=== PATIENT | female | born 1970 | race Caucasian/White ===

== ENCOUNTER 2020-01-28 07:36 | Outpatient (CLI) | payer OTHER, SELFPAY ==
--- NOTE | ~2020-01-28 | MM_ITS ---
EXAMINATION: MM screening bere BI w sweta HISTORY: Screening mammogram TECHNIQUE: Craniocaudal and mediolateral oblique 3-D tomosynthesis images were obtained and synthetic 2-D images were generated. CAD analysis was submitted and interpreted. COMPARISON: Comparison to multiple prior studies sequentially, with oldest reviewed study dated 01/27. BREAST PARENCHYMAL COMPOSITION: There are scattered areas of fibroglandular density. FINDINGS: There is a mass in the upper central aspect of the right breast which is partially obscured by fibroglandular tissue measuring approximately 1.3 cm maximum dimension. There is a focal asymmetr y superiorly in the right breast on the MLO view without definitive correlate on CC view. There are t issue markers in the right breast. There are small masses in the right breast which are obscured by f ibroglandular tissue. There are no suspicious calcifications or architectural distortion. IMPRESSION: 1. Developing bilateral breast masses. 2. Additional mammographic views and possible breast ultrasound are recommended. BI-RADS Category 0: Incomplete: Needs additional imaging evaluation. Reviewed, dictated and finalized at location A. IMPRESSION: 1. Developing bilateral breast masses. 2. Additional mammographic views and possible breast ultrasound are recommended . BI-RADS Category 0: Incomplete: Needs additional imaging evaluation.
== END 2020-01-28 07:37 | disposition home or self-care (01) ==
PROVIDERS: PCP Family Medicine Adolescent Medicine; Visit Provider Obstetrics & Gynecology
DX: Z12.31 Encounter for screening mammogram for malignant neoplasm of breast (principal); R92.8 Other abnormal and inconclusive findings on diagnostic imaging of breast
CPT/HCPCS: 77063; 77067

== ENCOUNTER 2020-01-30 11:01 | Outpatient (CLI) | payer OTHER, SELFPAY ==
--- NOTE | ~2020-01-30 | MMUS_ITS ---
EXAMINATION: MM diagnostic mammo unilat RT, US breast RT complete HISTORY: Developing right breast masses suggested on 01/28/2020 bilateral digital screening mammogram TECHNIQUE: Additional 3-D tomosynthesis images of the right breast were performed and synthetic 2-D i mages were generated. CAD analysis was submitted and interpreted. Rolled medial and rolled lateral cr aniocaudal views. High resolution complete right breast ultrasound was performed. COMPARISON: 01/28/2020, 01/03/2019, 03/22/2018, 02/03/2017 bilateral digital screening mammogram examinatio ns FINDINGS: MAMMOGRAPHIC FINDINGS: 2 biopsy markers are noted in the mid inner right breast. History of prior right benign breast biopsi es. Roughly 8 mm mass is suggested in upper inner right breast posteriorly; history of prior benign right breast biopsies. Circumscribed 4.5 mm mass is suggested in the lower mid right breast at approximately 6:00. ULTRASOUND: 12:00 4 cm from nipple: 3.3 x 3.8 x 6.8 millimeter sonolucency compatible with small cyst. 6:00 3 cm from nipple: 5.3 x 3.6 x 4.6 mm septated cyst. No suspicious mass or shadowing is detected. IMPRESSION: 1. Benign cysts 2. No mammographic evidence of malignancy 3. Routine mammographic screening is recommended BI-RADS Category 2: Benign finding(s). Reviewed, dictated and finalized at location A. IMPRESSION: 1. Benign cysts 2. No mammographic evidence of malignancy 3. Routine mammographic screening is recommended BI-RADS Category 2: Benign finding(s).
== END 2020-01-30 11:02 | disposition home or self-care (01) ==
PROVIDERS: PCP Family Medicine Adolescent Medicine; Visit Provider Student in an Organized Health Care Education/Training Program
DX: R92.2 Inconclusive mammogram (principal)
CPT/HCPCS: 76641; 77065

== ENCOUNTER 2020-10-27 11:46 | Outpatient (NON) | payer OTHER, SELFPAY ==
[2020-10-28 14:05] LABS: SARS-CoV-2 RNA PCR Negative
== END 2020-10-27 11:47 ==
LOC: ANHCOVIDDT 11:47
PROVIDERS: Family Provider Family Medicine Adolescent Medicine; PCP Family Medicine Adolescent Medicine; Visit Provider Family Medicine Adolescent Medicine
DX: R05 Cough (principal); R09.81 Nasal congestion; Z20.822 Contact with and (suspected) exposure to COVID-19
CPT/HCPCS: C9803; U0003; U0005

== ENCOUNTER 2021-02-04 08:09 | Outpatient (CLI) | payer OTHER, SELFPAY ==
--- NOTE | ~2021-02-04 | MM_ITS ---
EXAMINATION: MM screening bere BI w sweta HISTORY: Screening TECHNIQUE: Craniocaudal and mediolateral oblique 3-D tomosynthesis images were obtained and synthetic 2-D images were generated. CAD analysis was submitted and interpreted. COMPARISON: Comparison to multiple prior studies sequentially, with oldest reviewed study dated 05/2017. BREAST PARENCHYMAL COMPOSITION: Breast composed of scattered areas of fibroglandular density. FINDINGS: Focal asymmetry upper central aspect of the right breast is unchanged. There is no evidence of suspicious mass, calcification, or architectural distortion to suggest malignancy in either breas t. There has been no suspicious interval change. IMPRESSION: 1. No mammographic evidence of malignancy. 2. Recommend routine screening mammography in one year. BI-RADS Category 2: Benign finding(s). Reviewed, dictated and finalized at location A.
== END 2021-02-04 08:10 | disposition home or self-care (01) ==
LOC: ANHIMG 08:11
PROVIDERS: PCP Family Medicine Adolescent Medicine; Visit Provider Obstetrics & Gynecology
DX: Z12.31 Encounter for screening mammogram for malignant neoplasm of breast (principal)
CPT/HCPCS: 77063; 77067

== ENCOUNTER 2022-02-07 07:59 | Outpatient (CLI) | payer OTHER, SELFPAY ==
--- NOTE | ~2022-02-07 | MM_ITS ---
EXAMINATION: MM screening bere BI w sweta HISTORY: Screening TECHNIQUE: Craniocaudal and mediolateral oblique 3-D tomosynthesis images were obtained and synthetic 2-D images were generated. CAD analysis was submitted and interpreted. COMPARISON: Comparison to multiple prior studies sequentially, with oldest reviewed study dated 02/16. BREAST PARENCHYMAL COMPOSITION: Breast composed of scattered areas of fibroglandular density FINDINGS: The left breast is stable without evidence for malignancy. There is a mass in the upper out er quadrant of the right breast posteriorly. IMPRESSION: 1. Right breast mass, upper outer quadrant posteriorly. 2. Additional mammographic views and possible breast ultrasound are recommended. BI-RADS Category 0: Incomplete: Needs additional imaging evaluation. Reviewed, dictated and finalized at location A. IMPRESSION: 1. Right breast mass, upper outer quadrant posteriorly. 2. Additional mammographic views and possible breast ultrasound are recommended . BI-RADS Category 0: Incomplete: Needs additional imaging evaluation.
== END 2022-02-07 08:00 | disposition home or self-care (01) ==
LOC: ANHIMG 08:00
PROVIDERS: PCP Family Medicine Adolescent Medicine; Visit Provider Obstetrics & Gynecology
DX: Z12.31 Encounter for screening mammogram for malignant neoplasm of breast (principal); R92.8 Other abnormal and inconclusive findings on diagnostic imaging of breast
CPT/HCPCS: 77063; 77067

== ENCOUNTER 2022-02-11 11:39 | Outpatient (CLI) | payer OTHER, SELFPAY ==
--- NOTE | ~2022-02-11 | MMUS_ITS ---
EXAMINATION: MM diagnostic bere RT w sweta, US breast RT complete HISTORY: Follow-up right breast asymmetry TECHNIQUE: Additional 3-D tomosynthesis images of the right breast were performed and synthetic 2-D i mages were generated. CAD analysis was submitted and interpreted. High resolution right complete mar[address] ultrasound was performed. COMPARISON: Comparison to multiple prior studies sequentially, with oldest reviewed study dated 03/22. BREAST PARENCHYMAL COMPOSITION: The breasts are heterogenously dense, which may obscure small masses FINDINGS: MAMMOGRAPHIC FINDINGS: There is a focal asymmetry in the upper central aspect of the right breast posteriorly. No suspicious calcifications or architectural distortion. ULTRASOUND: Complete US of all 4 quadrants of the the right breast in the subareolar location: there is a normal- appearing lymph node in the right axilla. At 12:00, 4 cm from the nipple, there is a 4 mm cyst. At 6: 00, 3 cm from the nipple, there is an oval hypoechoic mass measuring 4 mm with low-level internal ech oes, posterior acoustic enhancement, likely a complicated cyst. There is prominent duct in the subare olar location. . IMPRESSION: 1. Probable benign right breast masses. 2. Recommend 6 month follow-up diagnostic right mammogram and ultrasound BI-RADS category 3, probably benign findings. Reviewed, dictated and finalized at location A. IMPRESSION: 1. Probable benign right breast masses. 2. Recommend 6 month follow-up diagnostic right mammogram and ultrasound BI-RADS category 3, probably benign findings.
== END 2022-02-11 11:40 | disposition home or self-care (01) ==
PROVIDERS: PCP Family Medicine Adolescent Medicine; Visit Provider Obstetrics & Gynecology
DX: R92.8 Other abnormal and inconclusive findings on diagnostic imaging of breast (principal)
CPT/HCPCS: 76641; 77061; 77065; G0279

== ENCOUNTER 2022-08-16 13:23 | Outpatient (CLI) | payer OTHER, SELFPAY ==
--- NOTE | ~2022-08-16 | MMUS_ITS ---
EXAMINATION: MM diagnostic bere RT w sweta, US breast RT complete HISTORY: Follow-up right breast masses. TECHNIQUE: Additional 3-D tomosynthesis images of the right breast were performed and synthetic 2-D i mages were generated. CAD analysis was submitted and interpreted. High resolution complete right [address] ultrasound was performed. COMPARISON: Comparison to multiple prior studies sequentially, with oldest reviewed study dated 12/2018. BREAST PARENCHYMAL COMPOSITION: Breast composed of scattered areas of fibroglandular density. FINDINGS: MAMMOGRAPHIC FINDINGS: There is a partially circumscribed mass in the upper central aspect of the right breast approximately 5.6 cm posterior to the nipple, possibly slightly increased in size compared with prior studies. The re is a tissue marker in the upper inner quadrant of the right breast from previous benign biopsy. Th ere are no additional masses or suspicious calcifications. ULTRASOUND: Complete right breast US of all 4 quadrants of the breasts and retroareolar region was reviewed. In t he periareolar location of the right breast there is a poorly circumscribed hypoechoic mass with anti parallel configuration and dense posterior shadowing. The margins are not well demonstrated limiting evaluation for measurement. There is dense posterior shadowing. No significant internal vascularity. IMPRESSION: 1. Poorly circumscribed hypoechoic mass in the periareolar location the right breast which may contai n a cystic component measuring 6 mm. Ultrasound guided biopsy of the shadowing soft tissue is recomme nded. 2. Partially circumscribed hypodense mass upper central right breast, slightly increased in size comp ared with prior studies. No sonographic correlate. Stereotactic or wire localization biopsy recommend ed. BI-RADS category 4, suspicious findings. Reviewed, dictated and finalized at location A. TING FRAME CHANGER IMPRESSION: 1. Poorly circumscribed hypoechoic mass in the periareolar location the right b reast which may contain a cystic component measuring 6 mm. Ultrasound guided bi opsy of the shadowing soft tissue is recommended. 2. Partially circumscribed hypodense mass upper central right breast, slightly increased in size compared with prior studies. No sonographic correlate. Stereo tactic or wire localization biopsy recommended. BI-RADS category 4, suspicious findings.
== END 2022-08-16 13:24 | disposition home or self-care (01) ==
PROVIDERS: PCP Family Medicine Adolescent Medicine; Visit Provider Obstetrics & Gynecology
DX: R92.8 Other abnormal and inconclusive findings on diagnostic imaging of breast (principal)
CPT/HCPCS: 76641; 77061; 77065; G0279

== ENCOUNTER 2022-08-30 10:52 | Outpatient (CLI) | payer OTHER, SELFPAY ==
--- NOTE | ~2022-08-30 | MMUS_ITS ---
EXAMINATION: US breast biopsy RT w image, MM post biopsy invasive RT DATE: 08/30/2022 12:28 (accession [id number]), 08/30/2022 12:24 (accession [id number]) INDICATION: Indeterminate mass in the subareolar aspect of the right breast. Ultrasound-guided core b iopsy is requested to evaluate for malignancy. TECHNIQUE AND FINDINGS: The risks and potential benefits of the procedure were discussed with the patient including bleeding and infection. A time out was performed. The skin of the right breast was prepared and draped in usua l sterile fashion. Lidocaine was used for superficial anesthesia. Lidocaine with epinephrine was used for deep anesthesia. A vacuum-assisted biopsy needle was advanced through to the outer edge of the region of interest from a lateral approach utilizing sonographic guidance. A total of three tissue core samples were obtaine d through the lesion. A tissue marker clip was then placed at the biopsy site. Hemostasis was achieve d. A sterile bandage was applied. The patient tolerated procedure well and there was no evidence of immediate complication. The patient was given verbal instructions to return to the Emergency Department in the event of severe breast pa in or rapid breast enlargement. A two view right breast mammogram was obtained to document tissue mar ker clip placement. IMPRESSION: 1. Successful ultrasound-guided vacuum-assisted biopsy of right breast mass with tissue marker placem ent. 2. Biopsy of an additional right breast mass was recommended however when compared to prior mammogram s dating back to at least 2019, the mass appears relatively stable. Follow-up right diagnostic mammog ubaldo in six months is recommended in lieu of biopsy. Reviewed, dictated and finalized at location A. RITY AND COMPLIANCE ANALYST IMPRESSION: 1. Successful ultrasound-guided vacuum-assisted biopsy of right breast mass wit h tissue marker placement. 2. Biopsy of an additional right breast mass was recommended however when shea red to prior mammograms dating back to at least 2019, the mass appears relative ly stable. Follow-up right diagnostic mammogram in six months is recommended in lieu of biopsy. IMPRESSION: 1. Successful ultrasound-guided vacuum-assisted biopsy of right breast mass wit h tissue marker placement. 2. Biopsy of an additional right breast mass was recommended however when shea red to prior mammograms dating back to at least 2018, the mass appears relative ly stable. Follow-up right diagnostic mammogram in six months is recommended in lieu of biopsy.
== END 2022-08-30 10:53 | disposition home or self-care (01) ==
LOC: ANHIMG 10:58
PROVIDERS: PCP Family Medicine Adolescent Medicine; Visit Provider Surgery
DX: R92.8 Other abnormal and inconclusive findings on diagnostic imaging of breast (principal)
CPT/HCPCS: 19083; 88305; A4648

== ENCOUNTER 2022-09-18 08:21 | Outpatient (CLI) | payer OTHER, SELFPAY ==
--- NOTE | ~2022-09-18 | MR_ITS ---
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 TECHNIQUE: Magnetic resonance imaging (MRI) of the brain, brainstem, and internal auditory canals was performed without intravenous contrast. COMPARISON: Brain MRI 12/12/2017 FINDINGS: There are scattered areas of nonspecific increased T2-weighted signal intensity in the cere bral white matter. There is no intracranial hemorrhage, acute infarction, or abnormal intracranial ma ss lesion. The ventricles are normal in size. There is mild mucosal thickening in the ethmoid sinuses . The orbits are normal. The mastoid air cells are normal. The internal auditory canals and inner and middle ears are normal. IMPRESSION: 1. Stable mild nonspecific cerebral white matter disease, which likely represents chronic small vesse l ischemic disease. Reviewed, dictated and finalized at location A. OO DESIGNER IMPRESSION: 1. Stable mild nonspecific cerebral white matter disease, which likely represen ts chronic small vessel ischemic disease.
== END 2022-09-18 08:22 | disposition home or self-care (01) ==
PROVIDERS: PCP Family Medicine Adolescent Medicine; Visit Provider Family Medicine Adolescent Medicine
DX: G62.9 Polyneuropathy, unspecified (principal); R93.0 Abnormal findings on diagnostic imaging of skull and head, not elsewhere classified
CPT/HCPCS: 70551

== ENCOUNTER 2023-02-15 12:47 | Outpatient (CLI) | payer OTHER, SELFPAY ==
--- NOTE | ~2023-02-15 | MM_ITS ---
EXAMINATION: MM screening [facility] BI w sweta HISTORY: Screening mammogram TECHNIQUE: Craniocaudal and mediolateral oblique 3-D tomosynthesis images were obtained and synthetic 2-D images were generated. CAD analysis was submitted and interpreted. COMPARISON: 08/16/2022, 02/11/2022, 02/07/2022, 02/04/2021 BREAST PARENCHYMAL COMPOSITION: There are scattered areas of fibroglandular density. FINDINGS: A stable mass in the posterior third of the right breast is consistent with a benign findin g. No suspicious mass, calcification, or architectural distortion are identified in either breast to suggest malignancy. There has been no suspicious interval change. IMPRESSION: 1. No mammographic evidence of malignancy. 2. Recommend routine screening mammography in one year. BI-RADS Category 2: Benign finding(s). Reviewed, dictated and finalized at location A.
== END 2023-02-15 12:48 | disposition home or self-care (01) ==
LOC: ANHIMG 12:50
PROVIDERS: PCP Family Medicine Adolescent Medicine; Visit Provider Obstetrics & Gynecology
DX: Z12.31 Encounter for screening mammogram for malignant neoplasm of breast (principal)
CPT/HCPCS: 77063; 77067

== ENCOUNTER 2023-05-09 12:25 | Outpatient (NON) | payer OTHER, SELFPAY | END 2023-05-09 12:26 | disposition home or self-care (01) | LOC: ANHLAB 05-10 12:26 | PROVIDERS: PCP Family Medicine Adolescent Medicine; Visit Provider Nurse Practitioner | DX: D22.5 Melanocytic nevi of trunk (principal) | CPT/HCPCS: 88305 ==

== ENCOUNTER 2023-11-15 07:45 | Day surgery (SDC) | payer OTHER, SELFPAY ==
[2023-11-06 14:36] VITALS: BMI 29.3
[2023-11-07 10:44] VITALS: BMI 29.5
[2023-11-15 08:42] VITALS: BP 136/87; PULSE 97; RESP 20; TEMP 36.3; O2SAT 100
[2023-11-15] MEDS: LACTATED RINGERS 1,000 ML 150 ML IV CONT (08:49)
--- NOTE | 2023-11-15 09:02 | P.PNAN_ITS ---
Anes - Initial Pre Proc Eval Procedure: Operation Date: 11/15/23 10:00 Proposed Procedures p Screening Colonoscopy - Jefferson Oviedo MD Date/Time: 11/15/23 09:02 Surgeon: Jefferson Oviedo MD Pre Op Diagnosis: Screening of neoplasm of the colon Patient Data Age: 53 Gender: F Height: 1.63 m Weight: 77.6 kg Last Vital Signs Temp 36.3 C L 11/15/23 08:42 Pulse 97 11/15/23 08:42 Resp 20 11/15/23 08:42 BP 136/87 11/15/23 08:42 Pulse Ox 100 11/15/23 08:42 O2 Del Method Room Air 11/15/23 08:42 Allergies Allergy/AdvReac Type Severity Reaction Status Date / Time amoxicillin Allergy Unknown Rash Verified 11/15/23 08:39 Penicillins Allergy Unknown RASH Verified 11/15/23 08:39 Home Medications Medication Instructions Recorded Confirmed Type aspirin 81 mg capsule 81 mg PO DAILY 12/27/22 11/15/23 History furosemide 20 mg tablet 20 mg PO DAILY PRN swelling 09/07/23 11/15/23 History rosuvastatin 10 mg tablet 10 mg PO DAILY 11/07/23 11/15/23 History terbinafine HCl 250 mg tablet 250 mg PO DAILY 11/07/23 11/15/23 History Patient hx anesthesia problems: none Family hx anesthesia problems: none Results Review: All pre-operative results and documents have been reviewed as part of the pre- operative evaluation. [facility] Past Medical History Medical History (Updated 11/15/23 @ 09:02 by Robert Schaefer MD) Abnormal mammogram Headache Hyperlipidemia PFO (patent foramen ovale) Surgical History Surgical History History of cholecystectomy History of endometrial ablation History of surgical procedure on mouth Family History Family History Father Cancer Mother Hypertension Sibling Hypertension Alcoholism Other Alcoholism Grandparent Diabetes mellitus Daughter Depression Other Cerebrovascular accident Family history of tuberculosis Social History Social History Smoking status: Never smoker Alcohol intake: never Substance use: never Substance use type: does not use Living arrangements: with family Additional living arrangements comments: with sp Occupation/Education: occupation Additional occupation/education comments: Head Of House[employer] Spiritual care concerns: No Anes - Eval Final PreProcedure Day of Procedure 11/15/23 09:02 Patient weight: overweight Heart: regular rate and rhythm Lungs: clear to auscultation Airway: Mallampati scale class II Neurological: alert and oriented Last oral intake: >/= 8 hours ASA classification: II Emergent: no Anesthetic plan: proceed Anesthesia type and monitoring: general GIVS and standard monitoring Results Review: All pre-operative results and documents have been reviewed as part of the pre- operative evaluation. Informed Consent: The patient's anesthetic plan and its attendant risks and benefits were discussed with the patient/family/POA. Questions were solicited and answers provided to the satisfaction of the patient/family/POA.
--- NOTE | 2023-11-15 09:40 | PM.HPGS ---
History of Present Illness History of Present Illness Consent: Risks, benefits, and alternatives have been discussed and questions answered. Patient agrees to proceed with procedure. Chief complaint: Screening of neoplasm of the colon Narrative: Magaly Yi is a 53 year old female presents for screening colonoscopy. Patient's current weight appetite and bowel movements are normal. Patient denies is abdominal pain. She has had no bleeding. Family history is noncontributory. Review of Systems Review of Systems: Review of systems noncontributory. Patient complains of occasional pressure in the pelvic area. [facility] Past Medical History Medical History (Updated 11/15/23 @ 09:42 by Jefferson Oviedo MD) Abnormal mammogram Headache Hyperlipidemia PFO (patent foramen ovale) Surgical History Surgical History History of cholecystectomy History of endometrial ablation History of surgical procedure on mouth Family History Family History Father Cancer Mother Hypertension Sibling Hypertension Alcoholism Other Alcoholism Grandparent Diabetes mellitus Daughter Depression Other Cerebrovascular accident Family history of tuberculosis Social History Social History Smoking status: Never smoker Alcohol intake: never Substance use: never Substance use type: does not use Living arrangements: with family Additional living arrangements comments: with sp Occupation/Education: occupation Additional occupation/education comments: Supervisor [employer]- [employer] Spiritual care concerns: No Meds Home Medications and Allergies Home Medications Medication Instructions Recorded Confirmed Type aspirin 81 mg capsule 81 mg PO DAILY 12/27/22 11/15/23 History furosemide 20 mg tablet 20 mg PO DAILY PRN swelling 09/07/23 11/15/23 History rosuvastatin 10 mg tablet 10 mg PO DAILY 11/07/23 11/15/23 History terbinafine HCl 250 mg tablet 250 mg PO DAILY 11/07/23 11/15/23 History Allergies Allergy/AdvReac Type Severity Reaction Status Date / Time amoxicillin Allergy Unknown Rash Verified 11/15/23 08:39 Penicillins Allergy Unknown RASH Verified 11/15/23 08:39 Vital Signs Vital Signs - 24 hr 11/15/23 08:42 Temperature 97.3 F L Pulse Rate 97 Respiratory Rate 20 Blood Pressure 136/87 Pulse Oximetry 100 Oxygen Delivery Room Air Exam Narrative: Physical exam reveals patient to be alert. Signs stable. HEENT exam is unremarkable. Patient is anicteric. Lungs are clear to auscultation and to percussion is without murmur or extra sounds. After sounds are present soft nontender with no organomegaly. Digital external rectal exam is normal. Assessment and Plan Assessment and plan (1) Encounter for screening colonoscopy: Code(s): Z12.11 - Encounter for screening for malignant neoplasm of colon Status: Acute Assessment and Plan: Patient presents for screening colonoscopy. Further recommendations may be given after endoscopy.
[2023-11-15 10:03] VITALS: BP 94/68; PULSE 80; RESP 16; O2SAT 100
[2023-11-15 10:13] VITALS: BP 117/75; PULSE 76; RESP 16; O2SAT 100
[2023-11-15 10:23] VITALS: BP 115/76; PULSE 77; RESP 16; O2SAT 99
--- NOTE | 2023-11-15 10:32 | WPDANESPN ---
Anes - Prog Note Post-Op Date/Time: 11/15/23 10:32 Cardiovascular status: normal Respiratory status: normal Airway patency: baseline Mental status: baseline Post-Op hydration status: normal Vital Signs: Last Vital Signs Temp 36.3 C L 11/15/23 08:42 Pulse 76 11/15/23 10:13 Resp 16 11/15/23 10:13 BP 117/75 11/15/23 10:13 Pulse Ox 100 11/15/23 10:13 O2 Del Method Room Air 11/15/23 10:13 Pain Score (VAS): 0/10 I/O: Intake & Output 11/14/23 11/15/23 11/15/23 23:59 07:59 15:59 Intake Total 500 Balance 500 Patient Feedback: Patient satisfied with anesthetic care.
--- NOTE | 2023-11-15 11:12 | SUR.PHASEII ---
1030; PT AWAKE AND ALERT. DENIES NAUSEA. STATES HEADACHE MILD AND TOLERABLE.
== END 2023-11-15 10:55 | disposition home or self-care (01) ==
PROVIDERS: PCP Family Medicine Adolescent Medicine; Visit Provider Internal Medicine Gastroenterology
PROC: 0DJD8ZZ Inspection of Lower Intestinal Tract, Via Natural or Artificial Opening Endoscopic (ICD-10-PCS; CPT 45378; principal; 2023-11-15 10:00)
DX: Z12.11 Encounter for screening for malignant neoplasm of colon (principal); K64.8 Other hemorrhoids
CPT/HCPCS: 45378

== ENCOUNTER 2024-02-19 15:20 | Outpatient (CLI) | payer OTHER, SELFPAY ==
--- NOTE | ~2024-02-19 | MM_ITS ---
EXAMINATION: MM screening [facility] BI w sweta HISTORY: Screening TECHNIQUE: Craniocaudal and mediolateral oblique 3-D tomosynthesis images were obtained and synthetic 2-D images were generated. CAD analysis was submitted and interpreted. COMPARISON: Comparison to multiple prior studies sequentially, with oldest reviewed study dated 03/2021. BREAST PARENCHYMAL COMPOSITION: Not dense: There are scattered areas of fibroglandular density. FINDINGS: No significant change to the mass located in the upper outer quadrant of the right breast p osteriorly. There are tissue markers in the right breast from previous benign biopsies. The left mar[address] is stable without evidence for malignancy. IMPRESSION: 1. Stable bilateral mammogram without evidence for malignancy. 2. Recommend routine screening mammography in one year. BI-RADS Category 2: Benign finding(s). Reviewed, dictated and finalized at location A.
== END 2024-02-19 15:21 | disposition home or self-care (01) ==
LOC: ANHIMG 15:22
PROVIDERS: PCP Family Medicine Adolescent Medicine; Visit Provider Obstetrics & Gynecology
DX: Z12.31 Encounter for screening mammogram for malignant neoplasm of breast (principal)
CPT/HCPCS: 77063; 77067

== ENCOUNTER 2024-03-20 12:48 | Emergency (ER) | payer OTHER, SELFPAY ==
--- NOTE | ~2024-03-20 | XR_ITS ---
XR chest 2V Ordering provider: Kyle Orozco APRN History: 53 years Female with . cough, SICKX 1 WK W/ FEVER MALAISE . Comparison: April 14, 2008 FINDINGS: MEDIASTINUM: The cardiac silhouette is not enlarged. LUNGS: No effusions or pneumothorax. Opacification in the lingula with loss of silhouette of the left cardiac border suggestive of pneumonia. OTHER: No free air under the diaphragm. IMPRESSION: Left lingular pneumonia. Reviewed, dictated and finalized at location A. IMPRESSION: Left lingular pneumonia.
[2024-03-20 12:53] VITALS: BP 141/76; PULSE 103; RESP 18; TEMP 37.8; O2SAT 99
[2024-03-20 13:47] LABS: Influenza A QL RT-PCR Negative (Negative); Influenza B QL RT-PCR Negative (Negative); RSV RNA, RT-PCR Negative (Negative); SARS-CoV-2 RNA PCR Negative (Negative)
[2024-03-20 14:45] VITALS: RESP 18
--- NOTE | 2024-03-20 15:24 | ED.FEVER ---
HPI - Fever General Chief Complaint: Fever Stated Complaint: fever Time Seen by Provider: 03/20/24 13:57 History of Present Illness HPI Narrative: 53-year-old female presents to the emergency room evaluation of this cough, fever, fatigue for several days. Patient states she had a telehealth visit yesterday and was prescribed doxycycline for suspected URI. Patient states that she is not experiencing any improvement. Has been taking Tylenol ibuprofen every 4 hours for the fever. Denies any chest pain. Does admit to occasional chest tightness with wheezing. Related Data Home Medications Medication Instructions Recorded Confirmed aspirin 81 mg capsule 81 mg PO DAILY 12/27/22 11/15/23 furosemide 20 mg tablet 20 mg PO DAILY PRN swelling 09/07/23 11/15/23 rosuvastatin 10 mg tablet 10 mg PO DAILY 11/07/23 11/15/23 terbinafine HCl 250 mg tablet 250 mg PO DAILY 11/07/23 11/15/23 Allergies Allergy/AdvReac Type Severity Reaction Status Date / Time amoxicillin Allergy Unknown Rash Verified 03/20/24 14:43 Penicillins Allergy Unknown RASH Verified 03/20/24 14:43 Review of Systems Review of Systems: ROS unremarkable except for noted in HPI PMFSH Past Medical History Medical History Abnormal mammogram Headache Hyperlipidemia PFO (patent foramen ovale) Surgical History Surgical History History of cholecystectomy History of endometrial ablation History of surgical procedure on mouth Family History Family History Father Cancer Mother Hypertension Sibling Hypertension Alcoholism Other Alcoholism Grandparent Diabetes mellitus Daughter Depression Other Cerebrovascular accident Family history of tuberculosis Social History Social History Smoking status: Never smoker Alcohol intake: never Substance use: never Substance use type: does not use Living arrangements: with family Additional living arrangements comments: with sp Occupation/Education: occupation Additional occupation/education comments: [employer] Spiritual care concerns: No Exam Narrative: GENERAL: Well-appearing, well-nourished, no physical limitations, and in no acute distress. HEAD: Normocephalic, atraumatic. EYES: Conjunctivae normal, PERRLA and EOMI. CHEST: Rales LLL. No respiratory distress. No wheezes rales or rhonchi. HEART: Regular rate and rhythm. No murmur heard. Normal peripheral pulses. EXTREMITIES: Normal range of motion. No edema. No clubbing or cyanosis SKIN: Warm, dry, no rash. No noted wounds NEURO: No focal deficits. Alert and oriented x3. MAEW. CN's II-XI intact bilaterally, normal gait PSYCH: Cooperative. Normal mood and affect. Course Vital Signs Vital signs: Vital Signs Temperature 37.8 C H 03/20/24 12:53 Pulse Rate 103 H 03/20/24 12:53 Respiratory Rate 18 03/20/24 12:53 Blood Pressure 141/76 H 03/20/24 12:53 Pulse Oximetry 99 03/20/24 12:53 Oxygen Delivery Room Air 03/20/24 12:53 Temperature 37.8 C H 03/20/24 12:53 Pulse Rate 103 H 03/20/24 12:53 Respiratory Rate 18 03/20/24 14:45 Blood Pressure 141/76 H 03/20/24 12:53 Pulse Oximetry 99 03/20/24 12:53 Oxygen Delivery Room Air 03/20/24 12:53 MDM - Fever Lab Data Labs: Lab Results 03/20/24 Range/Units 12:58 Influenza A (RT-PCR) Negative (Negative) Influenza B (RT-PCR) Negative (Negative) RSV (RT-PCR) Negative (Negative) SARS-CoV-2 RNA (RT-PCR) Negative (Negative) Imaging Data Radiologist's impression: Impressions Chest X-Ray 03/20/24 15:04 IMPRESSION: Left lingular pneumonia. Discharge Plan Discharge Clinical Impression: Pneumonia Patient Disposition: Home, Se
== END 2024-03-20 15:37 | disposition home or self-care (01) ==
PROVIDERS: Emergency Medicine; Emergency Provider Nurse Practitioner Family; PCP Family Medicine Adolescent Medicine
DX: J18.9 Pneumonia, unspecified organism (principal); Z20.822 Contact with and (suspected) exposure to COVID-19; E78.5 Hyperlipidemia, unspecified; Z90.49 Acquired absence of other specified parts of digestive tract; Z79.82 Long term (current) use of aspirin; Z79.899 Other long term (current) drug therapy
CPT/HCPCS: 71046; 87637; 99283

== ENCOUNTER 2025-03-07 15:45 | Outpatient (CLI) | payer BC, SELFPAY ==
--- NOTE | ~2025-03-07 | MM_ITS ---
EXAMINATION: MM screening bere BI w sweta HISTORY: Screening TECHNIQUE: Craniocaudal and mediolateral oblique 3-D tomosynthesis images were obtained and synthetic 2-D images were generated. CAD analysis was submitted and interpreted. COMPARISON: Comparison to multiple prior studies sequentially, with oldest reviewed study dated 06/2022. BREAST PARENCHYMAL COMPOSITION: Not dense: There are scattered areas of fibroglandular density. FINDINGS: There is no evidence of suspicious mass, calcification, or architectural distortion to sugg est malignancy in either breast. There has been no suspicious interval change. IMPRESSION: 1. No mammographic evidence of malignancy. 2. Recommend routine screening mammography in one year. BI-RADS Category 1: Negative Reviewed, dictated and finalized at location B.
--- OUTSIDE RECORDS SUMMARY | 2025-03-07 15:48 | XMS_ITS | Clinical Summary ---
[facility] Address [address] [place] [address] Care Team Providers Care Pulmonary Nurse Practitioner Name Role Phone Jamshid Harden MD Primary Care Prov ider Allergies Active Allergy Reactions Criticality Noted Date Comments Amoxicillin Rash Medium Medications aspirin (ASPIR-81) 81 mg tablet Take one by mouth one time per day 0 0 05/23/2008 Active furosemide (LASIX) 20 mg tablet TAKE 1 TABLET (20 MG TOTAL) BY MOUTH DAILY NEEDED (FOR SWELLING) 90 tablet 1 08/21/2023 Active estradiol-noreth indrone (ACTIVELLA) 0.5-0.1 mg per tablet Take 1 tablet by mouth daily Active atorvastatin (LIPITOR) 80 mg tablet Take 1 tablet (80 mg total) by mouth daily 30 tablet 3 10/31/2024 Active Hospital, Clinic, or Other Facility Administered Medication Ordered Dose Route Frequency Start Date End Date Status perflutren lipid (DEFINITY) 1.5 mL in sodium chloride 0.9% 10 mL syringe 1 - 10 mL IV Once in imaging 06/02/2021 Active Active Problems Problem Noted Date Diagnosed Date H/O mitral valve disorder 10/18/2022 Hypertriglyceridemia 10/18/2022 Paresthesia 04/25/2021 MICHAUD (dyspnea on exertion) 04/25/2021 Leg swelling 04/21/2021 Chest discomfort 04/21/2021 Mixed hyperlipidemia 06/23/2016 Overview (01/06/2017): Hyperlipidemia, unspecified Palpitations 06/23/2016 Overview (01/06/2017): Palpitations Patent foramen ovale 04/21/2014 Overview (01/06/2017): PFO (patent foramen ovale) Resolved Problems Problem Noted Date Diagnosed Date Resolved Date Mitral valve disease 06/23/2016 023 Overview (01/06/2017): Mitral valve prolapse Cardiac shunt 04/21/2014 10/18/2022 Overview (01/06/2017): Interatrial cardiac shunt Surgical History Surgery Date Site/Laterality Comments ENDOMETRIAL ABLATION Endometrial ablation CHOLECYSTECTOMY Medical History Medical History Date Comments Sinusitis Sinusitis Hx Other Medical Migraines PFO (patent foramen ovale) NOted by Echo 2007, no sx Cancer (HCC) Skin Migraines Family History Medical History Relation Name Comments Cancer Father Edward Lung cancer Father Edward Cancer, lung; C ause of : Cancer, lung Other Mother of cerebra l aneurysm rupture, age 69; Cause of : of cerebral aneurysm rupture, age 69 Hyperlipidemia Sister 1 Luann Hyperlipidemia Sister 2 Ángela Relation Name Status Comments Father Edward Mother Sister 1 Luann Alive Sister 2 Nágela Alive Social History Tobacco Use Types Packs/Day Years Used Date Smoking Tobacco: Never Smokeless Tobacco: Never Comments Unknown Sex and Gender Information Value Date Recorded Sex Assigned at Not on file Legal 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 Gender Identity Not on file Sexual Orientation Not on file Obstetrics History Last Filed Vital Signs Vital Sign Reading Time Taken Comments Blood Pressure 112/72 10/31/2024 8:21 AM ENGINEERING LECTURER Pulse 68 10/31/2024 8:21 AM ENGINEERING LECTURER Temperature - - Respiratory Rate - - Oxygen Saturation 99% 10/31/2024 8:21 AM ENGINEERING LECTURER Inhaled Oxygen Concentration - - Weight 72.6 kg (160 lb) 10/31/2024 8:21 AM ENGINEERING LECTURER Height 162.6 cm (5' 4) 10/31/2024 8:21 AM ENGINEERING LECTURER Body Mass Index 27.46 10/31/2024 8:21 AM ENGINEERING LECTURER Plan of Treatment Health Maintenance Due Date Last Done Comments Breast Cancer Screening-Mammogram 1972 Cervical Cancer Screening 1972 Colon Cancer Screening-Colonoscopy 1972 Depression Screening 1972 Hepatitis C Screening 1972 DTaP/Tdap/Td Vaccine (1 - Tdap) 1983 Hepatitis B Screening 1990 Regular Well Visit/Exam 18-64 1990 Zoster Vaccine (1 of 2) 2022 Covid-19 Vaccine (2 - 2023-2 5 season) 2024 05/28/2021 Influenza Vaccine (Season Ended) 2025 Pneumococcal vaccine <65 Aged Out No longer eligible based on patient's age to complete this topic Insurance [employer] [place] Care Teams Pulmonary Nurse Practitioner Relationship Specialty Start Date End Date Jamshid Harden MD [address] [place] [address] PCP - General 04/16/12
--- OUTSIDE RECORDS SUMMARY | 2025-03-07 15:48 | XMS_ITS | Referral Summary ---
Author Organization 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 Gender Identity Not on file Sexual Orientation Not on file Last Filed Vital Signs Vital Sign Reading Time Taken Comments Blood Pressure 112/72 10/31/2024 8:21 AM INSTRUMENTATION CONTROLS ENGINEER Pulse 68 10/31/2024 8:21 AM INSTRUMENTATION CONTROLS ENGINEER Temperature - - Respiratory Rate - - Oxygen Saturation 99% 10/31/2024 8:21 AM INSTRUMENTATION CONTROLS ENGINEER Inhaled Oxygen Concentration - - Weight 72.6 kg (160 lb) 10/31/2024 8:21 AM INSTRUMENTATION CONTROLS ENGINEER Height 162.6 cm (5' 4) 10/31/2024 8:21 AM INSTRUMENTATION CONTROLS ENGINEER Body Mass Index 27.46 10/31/2024 8:21 AM INSTRUMENTATION CONTROLS ENGINEER Plan of Treatment Not on file Insurance [facility] Care Teams Grades 1 6 Tutor Relationship Specialty Start Date End Date Jamshid Harden MD [address] [place] [address] PCP - General 04/16/12
== END 2025-03-07 15:46 | disposition home or self-care (01) ==
LOC: ANHIMG 15:47
PROVIDERS: PCP Family Medicine Adolescent Medicine; Visit Provider Obstetrics & Gynecology
DX: Z12.31 Encounter for screening mammogram for malignant neoplasm of breast (principal)
CPT/HCPCS: 77063; 77067